=== PATIENT | male | born 1980 | race Caucasian/White ===

== ENCOUNTER 2019-03-06 21:15 | Emergency (ER) | payer OTHER, BC ==
[~2019-03-06] VITALS: Ht 172.7 cm; Wt 79.4 kg
[2019-03-06] MEDS ORDERED: Augmentin 875-1 EACH PO (23:04)
[2019-03-06] MEDS ORDERED: CRUTCH2 XX (23:04)
[2019-03-06] MEDS ORDERED: Norco 7.5-3251 EACH PO (23:04)
== END 2019-03-06 23:20 | disposition home or self-care (01) ==
LOC: ER 21:15
DX: S92.322B Displaced fracture of second metatarsal bone, left foot, initial encounter for open fracture (principal); W22.8XXA Striking against or struck by other objects, initial encounter; F17.210 Nicotine dependence, cigarettes, uncomplicated
CPT/HCPCS: 29515; 73630; 90471; 90714; 96365-59; 96375-59; 99283-25; A9270; J0690; J1170; J3010

== ENCOUNTER 2019-03-08 12:01 | Day surgery (SDC) | payer OTHER, BC ==
[~2019-03-08] VITALS: Ht 172.7 cm; Wt 77.4 kg
[~2019-03-08 12:01] MED LIST: Augmentin 875-1 EACH PO; CRUTCH2 XX; Norco 7.5-3251 EACH PO
[2019-03-08] MEDS ORDERED: OXYC5 (12:31)
--- NOTE | 2019-03-08 15:17 | NUR ---
03/08/19 1517 Shelli Judge PATIENT C/O OF PAIN AND NAUSEA, MEDICATED WITH ZOFRAN AND FENTANYL PER ANESTHESIA ORDERS. PATIENT VERY SLEEPY, STATES THE ROOM IS SPINNING. VSS. TOLERATING PO FLUIDS, HAVE ENCOURAGED PATIENT TO EAT SALTINE CRACKERS SO THAT HE CAN RECEIVE PO PAIN MEDS. PATIENT IS VERY WITHDRAWN AND DIFFICULT TO GET ANSWERS FROM. WILL CONTINUE TO MONITOR.
== END 2019-03-08 16:35 | disposition home or self-care (01) ==
LOC: ORSCSDS 12:01
PROVIDERS: Podiatrist Foot & Ankle Surgery
PROC: 0QSP04Z Reposition Left Metatarsal with Internal Fixation Device, Open Approach (ICD-10-PCS; principal; 2019-03-08 13:15)
DX: S92.322B Displaced fracture of second metatarsal bone, left foot, initial encounter for open fracture (principal); F17.210 Nicotine dependence, cigarettes, uncomplicated
CPT/HCPCS: C1713; J0171; J0690; J1100; J1885; J2250; J2405; J2765; J3010; J7120

== ENCOUNTER 2021-01-15 18:53 | Observation (INO) | payer BC ==
[~2021-01-15] VITALS: Ht 172.7 cm; Wt 77.1 kg
[~2021-01-15 18:53] MED LIST changes: +OXYC5
[2021-01-15 19:19] LABS: BASOPHILS ABSOLUTE AUTO 0.04 K/mm3 (0.00-0.23); BASOPHILS PERCENT AUTO 1 % (0-2); EOSINOPHILS ABSOLUTE AUTO 0.04 K/mm3 (0.00-0.68); EOSINOPHILS PERCENT AUTO 1 % (0-6); Hematocrit 50.2 % (37.0-53.0); IMMATURE GRAN ABSOLUTE AUTO 0.03 K/mm3 (0.00-0.10); IMMATURE GRAN PERCENT AUTO 0 % (0-1); LYMPHOCYTES ABSOLUTE AUTO 2.29 K/mm3 (0.84-5.20); LYMPHOCYTES PERCENT AUTO 29 % (21-46); MONOCYTES ABSOLUTE AUTO 0.57 K/mm3 (0.16-1.47); MONOCYTES PERCENT AUTO 7 % (4-13); Mean Corpuscular HGB 28.4 pg (26.0-34.0); Mean Corpuscular HGB Conc 33.9 g/dL (31.5-36.5); Mean Corpuscular Volume 84 fL (80-100); Mean Platelet Volume 9.3 fL (9.1-12.4); NEUTROPHILS ABSOLUTE AUTO 4.89 K/mm3 (1.96-9.15); NEUTROPHILS PERCENT AUTO 62 % (41-73); Platelet Count 418 K/mm3 (150-400); RDW Coefficient Variation 13.5 % (11.7-14.2); RDW Standard Deviation 41.6 fL (35.1-46.3); Red Blood Cell Count 5.99 M/mm3 (4.30-5.90); White Blood Cell Count 7.86 K/mm3 (4.00-11.30)
[2021-01-15 19:36] LABS: Alanine Aminotransfer (ALT/SGP 19 U/L (12-78); Alk Phos 112 U/L (50-136); Anion Gap 10 mmol/L (6-16); Aspartate Aminotrans (AST/SGOT 15 U/L (12-37); Bilirubin, Total 0.6 mg/dL (0.1-1.0); Blood Urea Nitrogen 6 mg/dL (8-24); Bun/Creatinine Ratio 6.1 (12.0-20.0); CO2, Blood 21 mmol/L (21-32); Calcium, Blood 9.1 mg/dL (8.5-10.1); Chloride, Blood 107 mmol/L (98-108); Creatinine, Blood 0.98 mg/dL (0.60-1.20); Glomerular Filtration Rate >60 (60-); Glucose, Blood 90 mg/dL (70-99); Potassium, Blood 3.6 mmol/L (3.5-5.5); Salicylate 2.7 mg/dL (2.8-20.0); Sodium, Blood 138 mmol/L (136-145)
[2021-01-15 19:47] LABS: Ethanol (Alcohol), Blood, Med <3 mg/dL
[2021-01-15 19:53] LABS: Acetaminophen, Random <2.0 ug/mL (10.0-30.0)
[2021-01-15 20:21] LABS: Source, Urine Clean Catch
[2021-01-15 20:24] LABS: Appearance, Urine Clear (Clear); Bilirubin, Urine Neg (Neg); Blood, Urine Neg (Neg); Color, Urine Yellow (P-Yellow); Glucose Qualitative, Urine Neg (Neg); Ketones, Urine Neg (Neg); Leukocyte Esterase, Urine Neg (Neg); Nitrite, Urine Neg (Neg); Protein, Urine Neg (Neg); Specific Gravity, Urine 1.015 (1.003-1.022); Urobilinogen, Urine NORM (Normal)
[2021-01-15 20:42] LABS: U Amphetamine Screen Not Detected; U Barbituate Screen Not Detected; U Benzodiazapine Screen Not Detected; U Buprenorphine Screen Not Detected; U Cannabinoids Screen Not Detected; U Cocaine Screen Not Detected; U Methadone Screen Not Detected; U Methamphetamine Screen Not Detected; U Opiates Screen Not Detected; U Oxycodone Screen Not Detected; U Phencyclidine Screen Not Detected; U Propoxyphene Screen Not Detected
[2021-01-15 21:10] LABS: SARS-Cov-2 (COVID-19) PCR, MMC NEGATIVE (NEGATIVE)
== END 2021-01-17 11:31 | disposition home or self-care (01) ==
LOC: ER 18:53 → EOR 18:54
PROVIDERS: ADMIT Emergency Medicine
DX: T42.8X1A Poisoning by antiparkinsonism drugs and other central muscle-tone depressants, accidental (unintentional), initial encounter (principal); R00.0 Tachycardia, unspecified; F17.200 Nicotine dependence, unspecified, uncomplicated; G47.00 Insomnia, unspecified; F32.9 Major depressive disorder, single episode, unspecified; F15.90 Other stimulant use, unspecified, uncomplicated; Z20.822 Contact with and (suspected) exposure to COVID-19
CPT/HCPCS: 36415; 80053; 81003; 85025; 93005; 93010; 99285-25; A9270; G0378; G0480; Q3014; U0004

== ENCOUNTER 2021-11-25 11:11 | Emergency (ER) | payer BC ==
[~2021-11-25] VITALS: Ht 172.7 cm; Wt 79.4 kg
[2021-11-25] MEDS ORDERED: Amoxicillin875 MG PO (12:51)
== END 2021-11-25 13:08 | disposition home or self-care (01) ==
LOC: ER 11:11
DX: S00.03XA Contusion of scalp, initial encounter (principal); F17.200 Nicotine dependence, unspecified, uncomplicated; Y04.2XXA Assault by strike against or bumped into by another person, initial encounter; Z88.8 Allergy status to other drugs, medicaments and biological substances
CPT/HCPCS: 70450; 71101